=== PATIENT | female | born 1985 | race Caucasian/White ===

== ENCOUNTER 2018-08-13 14:07 | Inpatient (IN) | payer OTHER ==
[~2018-08-13] VITALS: Ht 160 cm; Wt 62.6 kg
[2018-08-13] MEDS ORDERED: LORAZEPAM INJ 2 MG/ML VIAL IVP ONE (14:30)
[2018-08-13] MEDS ORDERED: CHLO473M5 MM (14:30)
[2018-08-13] MEDS ORDERED: LEVO50TA8 GT (14:30)
[2018-08-13] MEDS ORDERED: ZOLP10TA2 GT (14:30)
[2018-08-13] MEDS ORDERED: HYDR-3974 GT (14:30)
[2018-08-13] MEDS ORDERED: IV NS 0.9% 1,000 ML BAG IV ONE ×2 (14:30→17:00)
[2018-08-13] MEDS ORDERED: SULF1TAB48 GT (14:30)
[2018-08-13] MEDS ORDERED: AMIN30LI2 GT (14:30)
[2018-08-13] MEDS ORDERED: LORA1TAB GT (14:30)
[2018-08-13] MEDS ORDERED: LEVE100S GT (14:30)
[2018-08-13] MEDS ORDERED: LEVETIRACETAM (500MG) 500 MG in IV NS 0.9% 100 ML IV ONE (14:30)
[2018-08-13] MEDS ORDERED: THIA100T74 GT (14:37)
[2018-08-13] MEDS ORDERED: ACET650S26 GT (14:37)
[2018-08-13] MEDS ORDERED: GABA-534 GT (14:37)
[2018-08-13] MEDS ORDERED: LORAZEPAM INJ 2 MG/ML VIAL ONE (14:39)
[2018-08-13] MEDS ORDERED: DIPH25CA6 GT (14:49)
[2018-08-13] MEDS ORDERED: IBUP100O19 GT (14:49)
[2018-08-13] MEDS ORDERED: ENOX40DI SQ (14:49)
[2018-08-13] MEDS ORDERED: IPRA3AMP23 IH ×2 (14:49)
[2018-08-13] MEDS ORDERED: BACL10TA GT (14:49)
[2018-08-13] MEDS ORDERED: OMEG1CAP GT (14:49)
[2018-08-13] MEDS ORDERED: DIVA500T2 GT (14:49)
[2018-08-13] MEDS ORDERED: LACT-209 GT (14:49)
[2018-08-13] MEDS ORDERED: FOLI1TAB16 GT (14:49)
[2018-08-13 14:56] LABS: BASOPHILS # (AUTO) 0.1 /CMM (0.0-0.2); BASOPHILS % (AUTO) 0.7 % (0.0-2.0); HEMATOCRIT 40 % (33-45); LYMPHOCYTES # (AUTO) 1.7 /CMM (0.8-4.8); LYMPHOCYTES % (AUTO) 20.6 % (20.0-44.0); MEAN CORPUSCULAR HGB CONC 35 g/dl (31.0-36.0); MEAN CORPUSCULAR VOLUME 96 fL (82-100); MONOCYTES # (AUTO) 0.9 /CMM (0.1-1.30); MONOCYTES % (AUTO) 10.3 % (2.0-12.0); NEUTROPHILS # (AUTO) 5.5 /CMM (1.8-8.9); NEUTROPHILS % (AUTO) 66.4 % (43.0-81.0); PLATELET COUNT (AUTO) 353 /CMM (150-450); RED BLOOD CELL COUNT(AUTO) 4.18 MIL/uL (4.0-5.2); WHITE BLOOD COUNT (AUTO) 8.3 K/uL (4.3-11.0)
[2018-08-13 15:08] LABS: CALCIUM, SERUM 9.5 mg/dL (8.5-10.1); CREATININE 0.4 mg/dL (0.6-1.3); POTASSIUM 3.3 mmol/L (3.5-5.1)
[2018-08-13 15:14] LABS: ALBUMIN 3.4 g/dL (3.4-5.0); BILIRUBIN,DIRECT 0.1 mg/dL (0.0-0.2); BILIRUBIN,TOTAL 0.2 mg/dL (0.2-1.0); TOTAL PROTEIN, SERUM 7.4 g/dL (6.4-8.2)
--- NOTE | 2018-08-13 15:20 | NUR ---
PT BROUGHT IN FROM [facility] PT HAS TRACH AND G-TUBE NON VERBAL PIV ESTABLISHED ALL MEDICATIONS AND FLUIDS GIVEN WILL CONTINUE TO MONITOR. BLOOD CULTURES TAKEN ALONG WITH LABS
[2018-08-13 16:34] LABS: APPEARANCE,URINE Slightly Cloudy (CLEAR); BILIRUBIN,URINE Negative (NEGATIVE); BLOOD, URINE Trace-intact Ery/uL (NEGATIVE); COLOR,URINE Yellow (YELLOW); KETONES,URINE Negative (NEGATIVE); LEUKOCYTE ESTERASE ,URINE Negative (NEGATIVE); NITRITE, URINE Negative (NEGATIVE); PROTEIN,URINE Negative (NEGATIVE); UGLUCOSE Negative (NEGATIVE)
[2018-08-13 16:47] LABS: BACTERIA,URINE Few /HPF (None Seen); RBC,URINE 0-2 /HPF (0-2); WBC,URINE 0-2 /HPF (0-3)
[2018-08-13 16:49] LABS: URINE AMORPHOUS URATE Few /HPF (None Seen)
[2018-08-13] MEDS ORDERED: ACETAMINOPHEN 650 MG/20.3 ML UDC ONE (16:54)
[2018-08-13] MEDS ORDERED: PIPERACILLIN /TAZOBACTAM 3.375 G in IV D5W 50 ML IV ONE (17:00)
[2018-08-13] MEDS ORDERED: ACETAMINOPHEN 160 MG/5 ML PO ONE (17:00)
[2018-08-13] MEDS ORDERED: ALBUTEROL FS 2.5 MG/3 ML VIAL.NEB CONTNEB ONE (17:30)
[2018-08-13] MEDS ORDERED: ALBUTEROL FS 2.5 MG/3 ML VIAL.NEB ONE (17:31)
--- NOTE | 2018-08-13 18:50 | NUR ---
RN REPORT GIVEN TO MAXIMINO PT ADMITTED TO [facility]-2 ADMITTING MD Michelle HENDERSON.
--- NOTE | 2018-08-13 18:50 | NUR ---
RECEIVED REPORT FROM JUAN SYED . PATIENT IS BEING ADMITTED FROM ER TO TELE ROOM 321-2.
--- NOTE | 2018-08-13 19:00 | NUR ---
SUPERINTENDENT INSTITUTION NOTE PATIENT ARRIVED TO UNIT ON A GURNEY ACCOMPANIED BY RN YAHAIRA AND MARITO. PATIENT IS WITH TRACH. OBTUNDED. APPEARS STABLE. VITAL SIGNS 141/84, HR 120, RR 20, TEMP 98.8. SPO2 97%. NO APPARENT DISTRESS OR DISCOMFORT AT THIS TIME. RESPIRATIONS EVEN AND UNLABORED. NO FACIAL GRIMACING OBSERVED. PATIENT MADE COMFORTABLE IN BED. NOTED G-TUBE IN PLACE. SAFETY MEASURES IN PLACE, BED IN LOW LOCKED POSITION, SIDE RAILS UP X3 PADS IMPLEMENTED, CALL LIGHT WITHIN EASY REACH, BED ALARM ON. WILL ENDORSE TO PM NURSE FOR ADMISSION AND DONTE.
[2018-08-13 20:00] VITALS: BP 141/84
[2018-08-13] MEDS ORDERED: LORAZEPAM 1 MG TABLET GT PRN (20:30)
[2018-08-13] MEDS ORDERED: ACETAMINOPHEN 650 MG/20.3 ML UDC GT PRN (20:30)
[2018-08-13] MEDS ORDERED: IBUPROFEN SUSP 100 MG/5 ML UDC GT PRN (20:30)
[2018-08-13] MEDS ORDERED: HYDROCODONE/APAP 5/325MG 1 EACH TABLET PO PRN (20:30)
[2018-08-13] MEDS ORDERED: ONDANSETRON HCL/PF 4 MG/2 ML VIAL IVP PRN (20:30)
[2018-08-13] MEDS ORDERED: ACETAMINOPHEN 325 MG TABLET PO PRN (20:30)
[2018-08-13] MEDS ORDERED: diphenhydrAMINE HCL 25 MG CAPSULE PO PRN (20:30)
[2018-08-13] MEDS ORDERED: Z GUARD REMEDY 2 OZ OINT TP PRN (20:30)
[2018-08-13] MEDS ORDERED: MAG HYDROX/AL HYDROX/SIMETH 30 ML UDC PO PRN (20:30)
[2018-08-13] MEDS ORDERED: MAGNESIUM HYDROXIDE 30 ML UDC PO PRN (20:30)
[2018-08-13] MEDS ORDERED: HYDROCODONE/APAP 5/325MG 1 EACH TABLET GT PRN (20:30)
[2018-08-13] MEDS ORDERED: VALPROATE IV ONE (21:00)
[2018-08-13] MEDS ORDERED: D5W IV ONE (21:00)
[2018-08-13] MEDS ORDERED: IPRATROPIUM NEB FS 0.5 MG/2.5 ML AMPUL.NEB NEB PRN (21:00)
--- NOTE | 2018-08-13 21:00 | NUR ---
SEAT NAILER RECEIVE PT IN BED NON VERBAL OBTUNDED OPENS EYES ON TRACH TUBE SHILEY 6 CUFFED OXYGEN AT 28% FI02 VIA CONTINUOS COOL AEROSOL VIA TRACH COLLAR 02 SAT AT 99%, RESPIRATIONS EVEN AND UNLABORED. HEAD TO TOE ASSESSMENT IS DONE.GT TUBE PLACE INTACT WITH NO S/S OF INFECTION. ADMIT TO TELEMETRY WITH RHYTHM OF SR 82 IN THE TELE MONITOR. PT QUADRIPLEGIC . KEPT CLEAN AND DRY AND COMFORT. NURSING CARE RENDERED. AFEBRILE. WILL CONTINUE TO MONITOR. MOTHER CAME AND AT THE BEDSIDE.
[2018-08-13] MEDS: JEVITY 1.2 CAL 1,000 ML BOTTLE GT SCH (21:29)
[2018-08-13] MEDS: GABAPENTIN 300 MG CAPSULE GT SCH (21:52)
[2018-08-13] MEDS: PROSOURCE / PROSTAT (PYXIS) 30 ML UDC GT SCH (21:52)
[2018-08-13] MEDS: SULFAMETH/TRIMETH 800/160 MG 1 UDTAB TABLET PO SCH (21:52)
[2018-08-13] MEDS: LEVETIRACETAM SOL (5 ML) 100 MG/ML UDC GT SCH (21:52)
[2018-08-13] MEDS: ATORVASTATIN 10 MG TABLET PO SCH (21:53)
[2018-08-13] MEDS: DIVALPROEX SODIUM 250 MG TABLET.DR PO SCH (21:53)
[2018-08-13] MEDS: IPRATROPIUM NEB FS 0.5 MG/2.5 ML AMPUL.NEB NEB SCH (22:16)
[2018-08-14] VITALS (7 sets, daily range): BP systolic 93–136; BP diastolic 52–83
[2018-08-14] MEDS: IPRATROPIUM NEB FS 0.5 MG/2.5 ML AMPUL.NEB NEB SCH ×4 (00:59→20:23)
--- NOTE | 2018-08-14 04:53 | NUR ---
NICOLAS MOREIRA SPOKE TO HIM CHANGE ORDER FROM NPO TO NPO EXCEPT MEDS VERIFIED ORDERS NOTED AND CARRIED OUT Addendum: 08/14/18 at 0623 by SHAHZAD PÉREZ RN CLARIFICATION OF ORDERS
[2018-08-14] MEDS: LEVETIRACETAM SOL (5 ML) 100 MG/ML UDC GT SCH ×3 (05:20→21:03)
[2018-08-14] MEDS: GABAPENTIN 300 MG CAPSULE GT SCH ×3 (05:21→21:03)
[2018-08-14] MEDS ORDERED: DIVALPROEX SODIUM 250 MG TABLET.DR PO ONE (05:23)
[2018-08-14] MEDS: DIVALPROEX SODIUM 250 MG TABLET.DR PO SCH (05:32)
--- NOTE | 2018-08-14 06:19 | NUR ---
RN CLOSING NOTE PT NON VERBAL OPENS EYES, ON CONTINUOS COOL AEROSOL VIA TRACH COLLAR 02 SAT AT 100%. RESPIRATIONS EVEN AND UNLABORED. NURSING CARE RENDERED, KEPT CLEAN AND DRY AND COMFORT, NEEDS ATTENDED AND ANTICIPATED. REPOSITIONED EVERY 2 HOURS. OFFLOAD HEELS AND ELBOWS AT ALL TIMES. NO SEIZURE EPISODE THROUGHOUT THE SHIFT. SAFETY MEASURES IN PLACE, CALL LIGHT WITHIN REACH. WILL ENDORSE TO THE NEXT SHIFT. Addendum: 08/14/18 at 0723 by SHAHZAD PÉREZ RN ALL PO MEDICATIONS ADMINISTERED TO GT
--- NOTE | 2018-08-14 07:48 | NUR ---
CANVAS WORKER OPENING NOTE' RECEIVED PATIENT IN BED, SLEEPING, AROUSED TO PHYSICAL STIMULI, RESPONDS WITH EYE OPENING. OBTUNDED. ON CONTINUOS COOL AEROSOL VIA TRACH COLLAR O2 SAT AT 100%. RESPIRATIONS EVEN AND UNLABORED. IN NO APPARENT DISTRESS OR DISCOMFORT AT THIS TIME. PATIENT ON TELE MONITORING WITH SR AND HR IN 80S. PATIENT WITH G-TUBE IN PLACE, FEEDING ON HOLD AT THIS TIME. LEFT AC 20G IVC SL, PATENT AND INTACT. PATIENT KEPT CLEAN AND COMFORTABLE. ALL NEEDS ATTENDED, SAFETY MEASURES IN PLACE, SEIZURE PRECAUTIONS OBSERVED, BED IN LOW LOCKED POSITION, SIDE RAILS UP X2, CALL LIGHT WITHIN EASY REACH. WILL CONTINUE TO MONITOR.
[2018-08-14] MEDS ORDERED: LORAZEPAM INJ 2 MG/ML VIAL IV PRN (08:00)
[2018-08-14] MEDS: PANTOPRAZOLE 40 MG VIAL IV SCH (08:20)
[2018-08-14] MEDS: LEVOTHYROXINE SODIUM 50 MCG TABLET GT SCH (08:21)
[2018-08-14] MEDS: THIAMINE HCL 100 MG TABLET GT SCH (08:21)
[2018-08-14] MEDS: BACLOFEN (10 MG) 10 MG TABLET GT SCH ×3 (08:21→16:16)
[2018-08-14] MEDS: FOLIC ACID 1 MG TABLET GT SCH (08:21)
[2018-08-14] MEDS: SULFAMETH/TRIMETH 800/160 MG 1 UDTAB TABLET PO SCH ×2 (08:21→21:03)
[2018-08-14] MEDS: ZOLPIDEM TARTRATE 10 MG TABLET GT SCH (08:21)
[2018-08-14] MEDS: ASPIRIN 81 MG TAB.CHEW PO SCH (08:21)
[2018-08-14] MEDS: ENOXAPARIN SODIUM 40 MG/0.4 ML DISP.SYRIN SQ SCH (08:22)
[2018-08-14] MEDS: PROSOURCE / PROSTAT (PYXIS) 30 ML UDC GT SCH ×2 (08:22→16:16)
[2018-08-14 08:52] LABS: BASOPHILS # (AUTO) 0.1 /CMM (0.0-0.2); BASOPHILS % (AUTO) 1.2 % (0.0-2.0); EOSINOPHILS % (AUTO) 4.5 % (0.0-6.0); HEMATOCRIT 38 % (33-45); HEMOGLOBIN 12.7 g/dL (11.5-14.8); LYMPHOCYTES # (AUTO) 2.1 /CMM (0.8-4.8); LYMPHOCYTES % (AUTO) 35.3 % (20.0-44.0); MEAN CORPUSCULAR HGB CONC 34 g/dl (31.0-36.0); MEAN CORPUSCULAR VOLUME 99 fL (82-100); MONOCYTES # (AUTO) 0.6 /CMM (0.1-1.30); MONOCYTES % (AUTO) 10.3 % (2.0-12.0); NEUTROPHILS # (AUTO) 2.9 /CMM (1.8-8.9); NEUTROPHILS % (AUTO) 48.7 % (43.0-81.0); PLATELET COUNT (AUTO) 296 /CMM (150-450); RED BLOOD CELL COUNT(AUTO) 3.78 MIL/uL (4.0-5.2)
[2018-08-14] MEDS ORDERED: Medication Not On Formulary EA (Omega-3 Fatty Acids/Fish Oil (Fish Oil 1,000 Mg Capsule) GT SCH (09:00)
[2018-08-14 09:03] LABS: CALCIUM, SERUM 8.6 mg/dL (8.5-10.1); CREATININE 0.5 mg/dL (0.6-1.3); MAGNESIUM 1.9 mg/dL (1.8-2.4); PHOSPHORUS 4.3 mg/dL (2.5-4.9); POTASSIUM 3.4 mmol/L (3.5-5.1)
[2018-08-14 09:29] LABS: THYROID STIMULATING HORMONE 1.492 uIU/mL (0.358-3.74)
[2018-08-14] MEDS ORDERED: VALPROIC ACID 250 MG/5 ML UDC GT SCH (13:00)
--- NOTE | 2018-08-14 18:25 | NUR ---
RECEIVED REPORT FROM LAB, PATIENT'S BLOOD CX RESULTED IN GRAM POSITIVE COCCI. REPORTED TO AMELIA HENDERSON. NO NEW ORDER AT THIS TIME.
--- NOTE | 2018-08-14 18:30 | NUR ---
MS RN CLOSING NOTE PATIENT IN BED, SLEEPING, AROUSED TO PHYSICAL STIMULI, RESPONDS WITH EYE OPENING. OBTUNDED. ON CONTINUOS COOL AEROSOL VIA TRACH COLLAR O2 SAT AT 100%. RESPIRATIONS EVEN AND UNLABORED. IN NO APPARENT DISTRESS OR DISCOMFORT AT THIS TIME. PATIENT WITH G-TUBE IN PLACE, FEEDING RUNNING AT 65ML/HR. LEFT AC 20G IVC SL, PATENT AND INTACT. PATIENT KEPT CLEAN AND COMFORTABLE. TURNED AND REPOSITIONED PER PROTOCOL, ALL NEEDS ATTENDED, SAFETY MEASURES IN PLACE, SEIZURE PRECAUTIONS OBSERVED, BED IN LOW LOCKED POSITION, SIDE RAILS UP X2, CALL LIGHT WITHIN EASY REACH. WILL ENDORSE TO PM NURSE FOR DONTE.
--- NOTE | 2018-08-14 20:04 | NUR ---
RN MS OPENING NOTES RECEIVED PATIENT IN BED, AWAKE, AROUSED TO TACTILE STIMULI. OBTUNDED. ON CONTINUOS COOL AEROSOL VIA TRACH COLLAR O2 SAT AT 100%. BREATHING EVEN AND UNLABORED. IN NO APPARENT DISCOMFORT AT THE TIME. G TUBE IN PLACE AND RUNNING @65ML./HR. IV ACCESS ON THE LEFT AC 20GSL. BED IN LOWEST LOCKED POSITION, MONITOR FREQUENTLY
[2018-08-14] MEDS: ATORVASTATIN 10 MG TABLET PO SCH (21:03)
[2018-08-15] MEDS: IPRATROPIUM NEB FS 0.5 MG/2.5 ML AMPUL.NEB NEB SCH ×4 (01:02→19:39)
[2018-08-15] MEDS: JEVITY 1.2 CAL 1,000 ML BOTTLE GT SCH ×2 (03:16→19:48)
[2018-08-15] MEDS: GABAPENTIN 300 MG CAPSULE GT SCH ×3 (04:20→21:03)
[2018-08-15] MEDS: LEVETIRACETAM SOL (5 ML) 100 MG/ML UDC GT SCH ×3 (04:20→21:03)
--- NOTE | 2018-08-15 06:25 | NUR ---
RN MS CLOSING NOTES PATIENT REMAINS IN BED, AWAKE, AROUSED TO TACTILE STIMULI. OBTUNDED. ON CONTINUOS COOL AEROSOL VIA TRACH COLLAR O2 SAT AT 100%. BREATHING EVEN AND UNLABORED. IN NO APPARENT DISCOMFORT AT THE TIME. G TUBE IN PLACE AND RUNNING @65ML./HR 2 ML OF RESIDUAL. IV ACCESS ON THE LEFT AC 20GSL. BED IN LOWEST LOCKED POSITION, WILL ENDORSE TO DAY NURSE FOR DONTE.
[2018-08-15 07:47] LABS: BASOPHILS % (AUTO) 0.8 % (0.0-2.0); EOSINOPHILS % (AUTO) 3.2 % (0.0-6.0); HEMATOCRIT 37 % (33-45); HEMOGLOBIN 12.8 g/dL (11.5-14.8); LYMPHOCYTES # (AUTO) 1.5 /CMM (0.8-4.8); LYMPHOCYTES % (AUTO) 24.3 % (20.0-44.0); MEAN CORPUSCULAR HGB CONC 35 g/dl (31.0-36.0); MEAN CORPUSCULAR VOLUME 97 fL (82-100); MONOCYTES # (AUTO) 0.5 /CMM (0.1-1.30); MONOCYTES % (AUTO) 8.3 % (2.0-12.0); NEUTROPHILS # (AUTO) 3.9 /CMM (1.8-8.9); NEUTROPHILS % (AUTO) 63.4 % (43.0-81.0); PLATELET COUNT (AUTO) 287 /CMM (150-450); RED BLOOD CELL COUNT(AUTO) 3.82 MIL/uL (4.0-5.2); WHITE BLOOD COUNT (AUTO) 6.1 K/uL (4.3-11.0)
--- NOTE | 2018-08-15 07:49 | NUR ---
MS RN OPENING NOTE RECEIVED PATIENT IN BED, SLEEPING, AROUSED TO PHYSICAL STIMULI, RESPONDS WITH EYE OPENING. OBTUNDED. ON CONTINUOS COOL AEROSOL VIA TRACH COLLAR O2 SAT AT 100%. RESPIRATIONS EVEN AND UNLABORED. IN NO APPARENT DISTRESS OR DISCOMFORT AT THIS TIME. PATIENT WITH G-TUBE IN PLACE, FEEDING RUNNING AT 65ML/HR. LEFT AC 20G IVC SL, PATENT AND INTACT. PATIENT KEPT CLEAN AND COMFORTABLE. ALL NEEDS ATTENDED, SAFETY MEASURES IN PLACE, SEIZURE PRECAUTIONS OBSERVED, BED IN LOW LOCKED POSITION, SIDE RAILS UP X2, CALL LIGHT WITHIN EASY REACH. WILL CONTINUE TO MONITOR.
[2018-08-15 08:00] VITALS: BP 114/84
[2018-08-15 08:23] LABS: CALCIUM, SERUM 9.3 mg/dL (8.5-10.1); CREATININE 0.4 mg/dL (0.6-1.3); MAGNESIUM 2.2 mg/dL (1.8-2.4); PHOSPHORUS 3.9 mg/dL (2.5-4.9); POTASSIUM 3.9 mmol/L (3.5-5.1)
[2018-08-15 08:40] VITALS: BP 114/84
[2018-08-15] MEDS: SULFAMETH/TRIMETH 800/160 MG 1 UDTAB TABLET PO SCH (08:54)
[2018-08-15] MEDS: BACLOFEN (10 MG) 10 MG TABLET GT SCH ×3 (08:54→16:36)
[2018-08-15] MEDS: ASPIRIN 81 MG TAB.CHEW PO SCH (08:54)
[2018-08-15] MEDS: LEVOTHYROXINE SODIUM 50 MCG TABLET GT SCH (08:54)
[2018-08-15] MEDS: FOLIC ACID 1 MG TABLET GT SCH (08:55)
[2018-08-15] MEDS: PROSOURCE / PROSTAT (PYXIS) 30 ML UDC GT SCH ×2 (08:55→16:36)
[2018-08-15] MEDS: PANTOPRAZOLE 40 MG VIAL IV SCH (08:57)
[2018-08-15] MEDS: ZOLPIDEM TARTRATE 10 MG TABLET GT SCH (08:58)
[2018-08-15] MEDS: THIAMINE HCL 100 MG TABLET GT SCH (08:58)
[2018-08-15] MEDS: ENOXAPARIN SODIUM 40 MG/0.4 ML DISP.SYRIN SQ SCH (09:00)
--- NOTE | 2018-08-15 09:00 | NUR ---
URINE SAMPLE COLLECTED VIA IN AND OUT CATHETERIZATION. AVAILABLE FOR LAB TO REHABILITATION THERAPY TECHNICIAN AT THIS TIME.
[2018-08-15] MEDS: VALPROIC ACID 250 MG/5 ML UDC GT SCH ×3 (09:30→16:36)
--- NOTE | 2018-08-15 10:58 | NUR ---
patient's mother at bedside, refused the ordered Depakote stating she wants to speak to the doctor first before giving the medication. Sangeeta Rodriguez NP made bruno. per Sangeeta, family needs to discuss that with the neurologist. waiting neuro follow up at this time. hold the dose at this time per family request.
--- NOTE | 2018-08-15 11:38 | NUR ---
CARMEN HENDERSON SPECIAL EDUCATION INSTRUCTOR DISCUSSED THE ISSUE WITH DEPAKOTE WITH THE FAMILY. AT THIS TIME PATIENT 'S MOTHER IS IN AGREEMENT WITH ADMINISTERING DEPAKOTE. PER CARMEN BOOKER TO GIVE MORNING DOSE NOW. NOTED AND CARRIED OUT.
--- NOTE | 2018-08-15 15:22 | NUR ---
EMMANUEL WARNER PER AMELIA HENDERSON'S ORDER. NOTED AND CARRIED OUT.
[2018-08-15] MEDS ORDERED: FEE PK DOSING 1 MIN EA MC ONE (15:29)
[2018-08-15 16:04] VITALS: BP 121/68
[2018-08-15] MEDS: VANCOMYCIN 1 GM in IV D5W 250 ML IV SCH (17:19)
--- NOTE | 2018-08-15 19:00 | NUR ---
MS RN CLOSING NOTE PATIENT IN BED, SLEEPING, AROUSED TO PHYSICAL STIMULI, RESPONDS WITH EYE OPENING. OBTUNDED. ON CONTINUOS COOL AEROSOL VIA TRACH COLLAR O2 SAT AT 100%. RESPIRATIONS EVEN AND UNLABORED. IN NO APPARENT DISTRESS OR DISCOMFORT AT THIS TIME. PATIENT WITH G-TUBE IN PLACE, FEEDING RUNNING AT 65ML/HR, PATENT AND INTACT, 2-3 ML RESIDUAL. LEFT AC 20G IVC SL, PATENT AND INTACT. PATIENT KEPT CLEAN AND COMFORTABLE. TURNED AND REPOSITIONED PER PROTOCOL, ALL NEEDS ATTENDED, SAFETY MEASURES IN PLACE, SEIZURE PRECAUTIONS OBSERVED, BED IN LOW LOCKED POSITION, SIDE RAILS UP X2, CALL LIGHT WITHIN EASY REACH. WILL ENDORSE TO PM NURSE FOR DONTE.
--- NOTE | 2018-08-15 19:46 | NUR ---
RN MS OPENING NOTES RECEIVED PATIENT IN BED, SLEEPING, AROUSED TO TACTILE STIMULI. OBTUNDED. MOTHER AT BEDSIDE. ON CONTINUOS COOL AEROSOL VIA TRACH COLLAR O2 SAT AT 100%. BREATHING EVEN AND UNLABORED. IN NO APPARENT DISCOMFORT AT THE TIME. G TUBE IN PLACE AND RUNNING @65ML./HR. IV ACCESS ON THE LEFT AC 20G TKO. BED IN LOWEST LOCKED POSITION, MONITOR FREQUENTLY
[2018-08-15 20:20] VITALS: BP 120/71
[2018-08-15] MEDS: ATORVASTATIN 10 MG TABLET PO SCH (21:03)
[2018-08-16] MEDS: VANCOMYCIN 1 GM in IV D5W 250 ML IV SCH ×2 (00:48→10:38)
[2018-08-16] MEDS: VALPROIC ACID 250 MG/5 ML UDC GT SCH ×3 (00:52→16:31)
[2018-08-16] MEDS: IPRATROPIUM NEB FS 0.5 MG/2.5 ML AMPUL.NEB NEB SCH ×4 (01:17→20:36)
[2018-08-16] MEDS: GABAPENTIN 300 MG CAPSULE GT SCH ×2 (04:56→13:00)
[2018-08-16] MEDS: LEVETIRACETAM SOL (5 ML) 100 MG/ML UDC GT SCH ×3 (04:56→21:02)
--- NOTE | 2018-08-16 06:30 | NUR ---
RN MS CLOSING NOTES PATIENT REMAINS IN BED, AWAKE, AROUSED TO TACTILE STIMULI. OBTUNDED. ON CONTINUOS COOL AEROSOL VIA TRACH COLLAR O2 SAT AT 100%. BREATHING EVEN AND UNLABORED. IN NO APPARENT DISCOMFORT AT THE TIME. G TUBE IN PLACE AND RUNNING @65ML./HR 0 ML OF RESIDUAL. IV ACCESS ON THE LEFT AC 20GSL. ONE LARGE SOFT BM DURING SHIFT. BED IN LOWEST LOCKED POSITION, WILL ENDORSE TO DAY NURSE FOR DONTE.
[2018-08-16 07:05] LABS: BASOPHILS # (AUTO) 0.1 /CMM (0.0-0.2); BASOPHILS % (AUTO) 0.7 % (0.0-2.0); EOSINOPHILS % (AUTO) 3.9 % (0.0-6.0); HEMATOCRIT 38 % (33-45); HEMOGLOBIN 12.9 g/dL (11.5-14.8); LYMPHOCYTES # (AUTO) 1.6 /CMM (0.8-4.8); LYMPHOCYTES % (AUTO) 22.5 % (20.0-44.0); MEAN CORPUSCULAR HGB CONC 34 g/dl (31.0-36.0); MEAN CORPUSCULAR VOLUME 98 fL (82-100); MONOCYTES # (AUTO) 0.5 /CMM (0.1-1.30); MONOCYTES % (AUTO) 6.8 % (2.0-12.0); NEUTROPHILS # (AUTO) 4.8 /CMM (1.8-8.9); NEUTROPHILS % (AUTO) 66.1 % (43.0-81.0); PLATELET COUNT (AUTO) 317 /CMM (150-450); RED BLOOD CELL COUNT(AUTO) 3.92 MIL/uL (4.0-5.2); WHITE BLOOD COUNT (AUTO) 7.3 K/uL (4.3-11.0)
--- NOTE | 2018-08-16 07:15 | NUR ---
RN OPENING NOTES RECEIVED PATIENT IN BED, SLEEPING, AROUSED TO TACTILE STIMULI. OBTUNDED. NOT IN ANY FORM OF DISTRESS. NO S/S OF PAIN OR DISCOMFORT AT THIS TIME. ON CONTINUOS COOL AEROSOL VIA TRACH COLLAR O2 SAT AT 100%. BREATHING EVEN AND UNLABORED. G TUBE IN PLACE AND RUNNING @65ML./HR. IV ACCESS ON THE LEFT AC 20G INTACT AND PATENT. KEPT PATIENT SAFE AND COMFORTABLE. SEIZURE PRECAUTIONS IN PLACE. BED IN LOWEST LOCKED POSITION, SIDERAILS UP AND PADDED. CALL LIGHT IN REACH. WILL CONT TO MONIOTR ACCORDINGLY.
[2018-08-16 07:27] LABS: CREATININE 0.4 mg/dL (0.6-1.3); POTASSIUM 3.6 mmol/L (3.5-5.1)
[2018-08-16 07:30] LABS: PHOSPHORUS 3.7 mg/dL (2.5-4.9)
[2018-08-16 08:00] VITALS: BP 113/85
[2018-08-16] MEDS: THIAMINE HCL 100 MG TABLET GT SCH (10:34)
[2018-08-16] MEDS: BACLOFEN (10 MG) 10 MG TABLET GT SCH ×3 (10:34→16:27)
[2018-08-16] MEDS: LEVOTHYROXINE SODIUM 50 MCG TABLET GT SCH (10:35)
[2018-08-16] MEDS: FOLIC ACID 1 MG TABLET GT SCH (10:35)
[2018-08-16] MEDS: PANTOPRAZOLE 40 MG VIAL IV SCH (10:35)
--- NOTE | 2018-08-16 10:36 | NUR ---
WOUND CARE CONSULT: PT PRESENTS WITH IMMOBILITY AND GROIN/PERINEAL RASH, PRESENT ON ADMISSION. RECOMMENDATIONS MADE FOR SKIN CARE AND SKIN PROTECTION. DISCUSSED WITH NURSING STAFF. LOW AIRLOSS BED TO BE PLACED. CURRENT WENDY SCORE IS 10. MD IN AGREEMENT WITH PLAN OF CARE. WILL SEE PRN. Addendum: 08/16/18 at 1038 by EVANGELINA HAMPTON WNDNU Amended: Links added.
[2018-08-16] MEDS: ASPIRIN 81 MG TAB.CHEW PO SCH (10:39)
[2018-08-16] MEDS: CLOTRIMAZOLE 1% 15 GM TUBE TP SCH ×2 (10:40→18:27)
[2018-08-16] MEDS: ENOXAPARIN SODIUM 40 MG/0.4 ML DISP.SYRIN SQ SCH (11:56)
[2018-08-16] MEDS: PROSOURCE / PROSTAT (PYXIS) 30 ML UDC GT SCH ×2 (11:56→16:28)
[2018-08-16 16:00] VITALS: BP 127/74
[2018-08-16] MEDS: JEVITY 1.2 CAL 1,000 ML BOTTLE GT SCH (17:45)
--- NOTE | 2018-08-16 19:20 | NUR ---
RN CLOSING NOTES PATIENT IN STABLE CONDITION. ALL NEEDS ATTENDED AND PROVIDED. ALL DUE MEDICATIONS GIVEN ORDERED. TURNED AND REPOSITIONED PATIENT EVERY 2HRS NEEDED. SUCTIONED PATIENT'S TRACH NEEDED. HOB ELEVATED. ASPIRATION PRECAUTION IN PLACE. KEPT PATIENT SAFE AND COMFORTABLE. BED IN LOW/LOCKED POSITION, SIDERAILS UP AND PADDED, CALL LIGHT IN REACH. ENDORSED TO NIGHT RN FOR DONTE.
--- NOTE | 2018-08-16 19:21 | NUR ---
RN NOTES ENDORSED TO NIGHT RN THAT PATIENT NEEDS TO BE TRANSFER TO AN ISOFLEX/AIRLOSS BED. NO BED AVAILABLE DURING DAY SHIFT.
--- NOTE | 2018-08-16 19:24 | NUR ---
RN MS OPENING NOTES RECEIVED PATIENT IN BED, SLEEPING, AROUSED TO TACTILE STIMULI. OBTUNDED. MOTHER AT BEDSIDE. ON CONTINUOS COOL AEROSOL VIA TRACH COLLAR O2 SAT AT 100%. BREATHING EVEN AND UNLABORED. IN NO APPARENT DISCOMFORT AT THE TIME. G TUBE IN PLACE AND RUNNING @65ML./HR. IV ACCESS ON THE LEFT AC 20G TKO. BED IN LOWEST LOCKED POSITION, WILL CONTINUE TO MONITOR FREQUENTLY
[2018-08-16 20:00] VITALS: BP 126/83
[2018-08-16] MEDS: ATORVASTATIN 10 MG TABLET PO SCH (21:03)
[2018-08-17] MEDS: IPRATROPIUM NEB FS 0.5 MG/2.5 ML AMPUL.NEB NEB SCH ×4 (01:47→19:18)
[2018-08-17] MEDS: VALPROIC ACID 250 MG/5 ML UDC GT SCH (02:02)
[2018-08-17] MEDS: LEVETIRACETAM SOL (5 ML) 100 MG/ML UDC GT SCH ×3 (04:05→21:27)
[2018-08-17 06:20] LABS: BASOPHILS % (AUTO) 0.3 % (0.0-2.0); EOSINOPHILS % (AUTO) 1.7 % (0.0-6.0); HEMATOCRIT 38 % (33-45); HEMOGLOBIN 13.3 g/dL (11.5-14.8); LYMPHOCYTES # (AUTO) 1.4 /CMM (0.8-4.8); LYMPHOCYTES % (AUTO) 13.5 % (20.0-44.0); MEAN CORPUSCULAR HGB CONC 35 g/dl (31.0-36.0); MEAN CORPUSCULAR VOLUME 97 fL (82-100); MONOCYTES # (AUTO) 0.6 /CMM (0.1-1.30); MONOCYTES % (AUTO) 5.3 % (2.0-12.0); NEUTROPHILS # (AUTO) 8.4 /CMM (1.8-8.9); NEUTROPHILS % (AUTO) 79.2 % (43.0-81.0); PLATELET COUNT (AUTO) 319 /CMM (150-450); RED BLOOD CELL COUNT(AUTO) 3.95 MIL/uL (4.0-5.2); WHITE BLOOD COUNT (AUTO) 10.6 K/uL (4.3-11.0)
[2018-08-17 07:03] LABS: CALCIUM, SERUM 9.1 mg/dL (8.5-10.1); CREATININE 0.4 mg/dL (0.6-1.3); MAGNESIUM 1.9 mg/dL (1.8-2.4); PHOSPHORUS 3.3 mg/dL (2.5-4.9)
--- NOTE | 2018-08-17 07:59 | NUR ---
MS/RN OPENING NOTE PATIENT IN BED IN STABLE CONDITION. NON VERBAL, OBTUNDED. TRACH DEPENDENT ON COOL AEROSOL TOLERATING WELL. NO SIGNS OF ACUTE DISTRESS. NO S/S OF PAIN OR DISCOMFORT NOTED AT THIS TIME. ON G TUBE FEEDING JEVITY AT 65MLS/HR. TOLERATING WELL. HOB ELEVATED AT ALL TIMES FOR ASPIRATION PRECAUTION. ALL NEEDS ATTENDED TO. CALL LIGHT WITHIN REACH. WILL CONTINUE TO MONITOR TO ENSURE SAFETY.
[2018-08-17 08:00] VITALS: BP 149/96
[2018-08-17] MEDS: CLOTRIMAZOLE 1% 15 GM TUBE TP SCH ×2 (09:04→17:02)
[2018-08-17] MEDS: THIAMINE HCL 100 MG TABLET GT SCH (09:04)
[2018-08-17] MEDS: PANTOPRAZOLE 40 MG VIAL IV SCH (09:04)
[2018-08-17] MEDS: LEVOTHYROXINE SODIUM 50 MCG TABLET GT SCH (09:04)
[2018-08-17] MEDS: BACLOFEN (10 MG) 10 MG TABLET GT SCH ×3 (09:05→17:02)
[2018-08-17] MEDS: PROSOURCE / PROSTAT (PYXIS) 30 ML UDC GT SCH ×2 (09:05→17:02)
[2018-08-17] MEDS: FOLIC ACID 1 MG TABLET GT SCH (09:05)
[2018-08-17] MEDS: ASPIRIN 81 MG TAB.CHEW PO SCH (09:05)
[2018-08-17] MEDS: ENOXAPARIN SODIUM 40 MG/0.4 ML DISP.SYRIN SQ SCH (09:06)
[2018-08-17 16:00] VITALS: BP 141/89
[2018-08-17] MEDS: JEVITY 1.2 CAL 1,000 ML BOTTLE GT SCH (17:02)
--- NOTE | 2018-08-17 17:44 | NUR ---
MS/RN SPOKE WITH ADARSH CISNEROS FOR NEURO DR JOHNSON AND RELAYED STAT DEPAKOTE LEVEL OF 74 ORDERED AT 3:15PM WITH NO NEW ORDERS.
--- NOTE | 2018-08-17 18:30 | NUR ---
MS/RN CLOSING NOTE PATIENT IN BED IN STABLE CONDITION. NON VERBAL, OBTUNDED, OPEN EYES. NO SIGNS OF ACUTE DISTRESS. NO COMPLAIN OF PAIN OR DISCOMFORT. ON TRACH DEPENDENT. TOLERATING WELL. ON GTUBE FEEDING JEVITY AT 65 MLS/HR. TOLERATING WELL. HOB ELEVATED FOR ASPIRATION PRECAUTION. ALL NEEDS ATTENDED TO. CALL LIGHT WITHIN REACH. WILL ENDORSE TO NEXT SHIFT FOR CONTINUITY OF CARE.
--- NOTE | 2018-08-17 19:57 | NUR ---
RN MS OPENING NOTES RECEIVED PATIENT IN BED, SLEEPING, AROUSED TO TACTILE STIMULI. OBTUNDED. FAMILY AT BEDSIDE. ON CONTINUOS COOL AEROSOL VIA TRACH COLLAR O2 SAT AT 100%. BREATHING EVEN AND UNLABORED. IN NO APPARENT DISCOMFORT AT THE TIME. G TUBE IN PLACE AND RUNNING @65ML./HR. IV ACCESS ON THE LEFT AC 20G TKO. BED IN LOWEST LOCKED POSITION, WILL CONTINUE TO MONITOR FREQUENTLY
[2018-08-17 20:00] VITALS: BP 127/80
[2018-08-17] MEDS: ATORVASTATIN 10 MG TABLET PO SCH (21:27)
[2018-08-17] MEDS: VALPROATE 1,000 MG in IV NS 0.9% 100 ML IV SCH (21:27)
[2018-08-18] MEDS: IPRATROPIUM NEB FS 0.5 MG/2.5 ML AMPUL.NEB NEB SCH ×4 (00:59→19:17)
[2018-08-18] MEDS: LEVETIRACETAM SOL (5 ML) 100 MG/ML UDC GT SCH ×3 (05:22→21:14)
[2018-08-18] MEDS: VALPROATE 1,000 MG in IV NS 0.9% 100 ML IV SCH (05:23)
--- NOTE | 2018-08-18 06:12 | NUR ---
RN MS CLOSING NOTES PATIENT REMAINS IN BED, AWAKE, AROUSED TO TACTILE STIMULI. OBTUNDED. ON CONTINUOS COOL AEROSOL VIA TRACH COLLAR O2 SAT AT 100%. BREATHING EVEN AND UNLABORED. IN NO APPARENT DISCOMFORT AT THE TIME. G TUBE IN PLACE AND RUNNING @65ML./HR 2 ML OF RESIDUAL. IV ACCESS ON THE LEFT AC 20GSL. NO BM DURING SHIFT. BED IN LOWEST LOCKED POSITION, WILL ENDORSE TO DAY NURSE FOR DONTE.
--- NOTE | 2018-08-18 07:25 | NUR ---
MS/RN NOTE THE PATIENT IS RECEIVED IN BED. PATIENT IS OBTUNDED, OPEN EYES TO TACTILE STIMULI AND SHE IS ON CONTINUOS COOL AEROSOL VIA TRACH COLLAR O2 SAT AT 100%. GT FEEDING JEVITY INFUSING AT 65ML/HR. ABDOMEN SOFT AND NON-DISTENDED. LAC G 20 PATENT AND SALINE LOCKED. BED LOW AND LOCKED. SIDE RAILS UP X3 AND PADDED. CALL LIGHT WITHIN REACH. WILL CONTINUE TO MONITOR.
[2018-08-18 07:40] LABS: BASOPHILS % (AUTO) 0.2 % (0.0-2.0); EOSINOPHILS % (AUTO) 1.4 % (0.0-6.0); HEMATOCRIT 41 % (33-45); HEMOGLOBIN 13.8 g/dL (11.5-14.8); LYMPHOCYTES # (AUTO) 1.3 /CMM (0.8-4.8); LYMPHOCYTES % (AUTO) 14.7 % (20.0-44.0); MEAN CORPUSCULAR HGB CONC 34 g/dl (31.0-36.0); MEAN CORPUSCULAR VOLUME 97 fL (82-100); MONOCYTES # (AUTO) 0.4 /CMM (0.1-1.30); NEUTROPHILS % (AUTO) 78.7 % (43.0-81.0); PLATELET COUNT (AUTO) 299 /CMM (150-450); RED BLOOD CELL COUNT(AUTO) 4.17 MIL/uL (4.0-5.2); WHITE BLOOD COUNT (AUTO) 8.9 K/uL (4.3-11.0)
[2018-08-18 08:00] VITALS: BP 130/84
[2018-08-18 08:03] LABS: CALCIUM, SERUM 9.7 mg/dL (8.5-10.1); CREATININE 0.4 mg/dL (0.6-1.3); MAGNESIUM 1.9 mg/dL (1.8-2.4); PHOSPHORUS 3.2 mg/dL (2.5-4.9); POTASSIUM 3.9 mmol/L (3.5-5.1)
[2018-08-18] MEDS: CLOTRIMAZOLE 1% 15 GM TUBE TP SCH ×2 (09:00→17:10)
--- NOTE | 2018-08-18 10:00 | NUR ---
MS/RN NOTE SULFUR BURNER ALEXA IS MADE AWARE THAT THE PATIENT`S LOWER LIP IS MODERATELY SWOLLEN. RECEIVED THE PATIENT IS MODERATELY SWOLLEN LOWER LIP. SULFUR BURNER ALEXA WITH NO NEW ORDER. WILL CONTINUE TO MONITOR.
[2018-08-18] MEDS: PANTOPRAZOLE 40 MG VIAL IV SCH (11:30)
[2018-08-18] MEDS: LEVOTHYROXINE SODIUM 50 MCG TABLET GT SCH (11:30)
[2018-08-18] MEDS: ENOXAPARIN SODIUM 40 MG/0.4 ML DISP.SYRIN SQ SCH (11:30)
[2018-08-18] MEDS: BACLOFEN (10 MG) 10 MG TABLET GT SCH ×3 (11:30→17:10)
[2018-08-18] MEDS: PROSOURCE / PROSTAT (PYXIS) 30 ML UDC GT SCH ×2 (11:30→17:05)
[2018-08-18] MEDS: FOLIC ACID 1 MG TABLET GT SCH (11:30)
[2018-08-18] MEDS: THIAMINE HCL 100 MG TABLET GT SCH (11:30)
[2018-08-18] MEDS: ASPIRIN 81 MG TAB.CHEW PO SCH (11:30)
--- NOTE | 2018-08-18 13:00 | NUR ---
MS/RN NOTE GAS APPLIANCE INSTALLER ADARSH ALMAGUER IS MADE AWARE OF PATIENT HAVING SHORT EPISODES OF NYSTAGMUS LIKE EYE MOVEMENTS AND THAT VALPROIC ACID LEVEL IS 144. NO NEW ORDER PER GAS APPLIANCE INSTALLER. WILL CONTINUE TO MONITOR THE PATIENT.
--- NOTE | 2018-08-18 13:26 | NUR ---
MS/RN NOTE 0900 DUE MEDICATIONS GIVEN AT 1130 DUE MEDITECH WAS DOWN AND PHARMACY PROVIDED THE LIST OF THE MEDICATION TO BE ADMINISTERED AT 1130. AMELIA LIU IS MADE AWARE.
--- NOTE | 2018-08-18 15:19 | NUR ---
MS/RN NOTE TYLENOL 650 MG GIVEN VIA GT FOR TEMP 99.2. WILL CONTINUE TO MONITOR.
--- NOTE | 2018-08-18 15:45 | NUR ---
MS/RN NOTE TEMP IS 98.4. THE PATIENT REMAINS IN NO APPARENT DISTRESS.
[2018-08-18 16:00] VITALS: BP 137/75
--- NOTE | 2018-08-18 17:08 | NUR ---
MS/RN BACLOFEN 5 MG DUE AT 1300 NOT ADMINISTERED DUE TO BACLOFEN 5 MG ADMINISTERED AT 1130 INSTEAD OF 0900. MIXER OPERATOR HOT METAL ALEXA IS MADE AWARE.
[2018-08-18 18:00] VITALS: BP 137/82
--- NOTE | 2018-08-18 18:52 | NUR ---
MS/RN NOTE THE PATIENT OBTUNDED, OPEN EYES TO TACTILE STIMULI AND SHE IS ON CONTINUOS COOL AEROSOL VIA TRACH COLLAR O2 SAT AT 100%. GT FEEDING JEVITY INFUSING AT 65ML/HR. ABDOMEN SOFT AND NON-DISTENDED. NO RESIDUAL NOTED. LAC G 20 PATENT AND SALINE LOCKED. GOOD AND GENTLE SKIN CARE RENDERED. KEPT CLEAN AND COMFORTABLE. TURNED AND REPOSITIONED Q2HR AND NEEDED. BED LOW AND LOCKED. SIDE RAILS UP X3 AND PADDED. CALL LIGHT WITHIN REACH. WILL ENDORSE TO FISHER EEL.
--- NOTE | 2018-08-18 19:30 | NUR ---
RECEIVED PATIENT IN BED WITH EYES OPEN; OBTUNDED. NO ACUTE DISTRESS NOTED. NO SIGNS OF PAIN NOTED. TRACH INTACT; T-PIECE IN PLACE. ON COOL AEROSOL. GT PATENT, INTACT; IN PLACE VIA AUSCULTATION. GTF ONGOING; NO RESIDUAL ASPIRATED. HOB RAISED. ASPIRATION PRECAUTION MAINTAINED. ON LOW BED WITH BILATERAL UPPER SIDE RAILS UP. CALL LADD WITHIN EASY REACH. WILL CONTINUE TO MONITOR.
[2018-08-18 20:00] VITALS: BP 134/81
[2018-08-18] MEDS: ATORVASTATIN 10 MG TABLET PO SCH (21:14)
[2018-08-19] MEDS: IPRATROPIUM NEB FS 0.5 MG/2.5 ML AMPUL.NEB NEB SCH ×4 (01:32→18:51)
[2018-08-19] MEDS: LEVETIRACETAM SOL (5 ML) 100 MG/ML UDC GT SCH ×3 (05:16→21:29)
--- NOTE | 2018-08-19 06:43 | NUR ---
PATIENT WITH EYES OPEN. RESPIRATIONS EVEN. NO SIGNS OF PAIN NOTED. DUE MEDS GIVEN WITH NO ASE NOTED. GTF ONGOING; STILL NO RESIDUAL ASPIRATED. HOB RAISED. KEPT CLEAN, DRY, AND COMFORTABLE. TURNED AND REPOSITIONED Q 2 HOURS. HEEL OFFLOADED. SAFETY PRECAUTIONS AND COMFORT MEASURES IN PLACE. WILL GIVE REPORT TO DAY SHIFT FOR CONTINUITY OF CARE.
[2018-08-19] MEDS: JEVITY 1.2 CAL 1,000 ML BOTTLE GT SCH (06:51)
[2018-08-19 07:47] LABS: CALCIUM, SERUM 9.6 mg/dL (8.5-10.1); CREATININE 0.5 mg/dL (0.6-1.3); POTASSIUM 3.9 mmol/L (3.5-5.1)
[2018-08-19 07:48] LABS: BASOPHILS % (AUTO) 0.2 % (0.0-2.0); EOSINOPHILS % (AUTO) 0.3 % (0.0-6.0); HEMATOCRIT 42 % (33-45); HEMOGLOBIN 14.3 g/dL (11.5-14.8); LYMPHOCYTES # (AUTO) 0.9 /CMM (0.8-4.8); LYMPHOCYTES % (AUTO) 7.4 % (20.0-44.0); MEAN CORPUSCULAR HGB CONC 34 g/dl (31.0-36.0); MEAN CORPUSCULAR VOLUME 96 fL (82-100); MONOCYTES # (AUTO) 0.7 /CMM (0.1-1.30); MONOCYTES % (AUTO) 5.2 % (2.0-12.0); NEUTROPHILS % (AUTO) 86.9 % (43.0-81.0); PLATELET COUNT (AUTO) 365 /CMM (150-450); RED BLOOD CELL COUNT(AUTO) 4.39 MIL/uL (4.0-5.2); WHITE BLOOD COUNT (AUTO) 12.7 K/uL (4.3-11.0)
[2018-08-19 08:00] VITALS: BP 130/86
--- NOTE | 2018-08-19 08:00 | NUR ---
MS RN AM NOTES RECEIVED PATIENT IN BED WITH EYES OPEN; OBTUNDED. NO ACUTE DISTRESS NOTED. NO SIGNS OF PAIN NOTED. TRACH INTACT; T-PIECE IN PLACE. ON COOL AEROSOL. GT PATENT, INTACT; GT FEEDING ON HOLD AND WILL RESUME AT 10AM FOR [address] VIA AUSCULTATION.NO RESIDUAL ASPIRATED. HOB RAISED. ASPIRATION PRECAUTION MAINTAINED. ON LOW BED WITH BILATERAL UPPER SIDE RAILS UP. NEURO DRY HOUSE WHEELER,SUSHIL SPOKE TO PT'S MOM,MIGNON AT BEDSIDE AND DISCUSSED PT'S MEDS OF DEPAKOTE,KEPPRA AND FAMILY WANTS TOPAMAX INSTEAD-MENTIONED IT TO AMELIA LING.ALSO GAVE PT'S NEURO,DR TANNER'S PHONE NUMBER TO AMELIA LING.CALL LADD WITHIN EASY REACH. WILL CONTINUE TO MONITOR.
[2018-08-19] MEDS: FOLIC ACID 1 MG TABLET GT SCH (09:14)
[2018-08-19] MEDS: THIAMINE HCL 100 MG TABLET GT SCH (09:14)
[2018-08-19] MEDS: LEVOTHYROXINE SODIUM 50 MCG TABLET GT SCH (09:14)
[2018-08-19] MEDS: ASPIRIN 81 MG TAB.CHEW PO SCH (09:14)
[2018-08-19] MEDS: PANTOPRAZOLE 40 MG VIAL IV SCH (09:14)
[2018-08-19] MEDS: BACLOFEN (10 MG) 10 MG TABLET GT SCH ×3 (09:14→17:14)
[2018-08-19] MEDS: ENOXAPARIN SODIUM 40 MG/0.4 ML DISP.SYRIN SQ SCH (09:15)
[2018-08-19] MEDS: PROSOURCE / PROSTAT (PYXIS) 30 ML UDC GT SCH ×2 (09:19→17:14)
[2018-08-19] MEDS: CLOTRIMAZOLE 1% 15 GM TUBE TP SCH ×2 (09:32→17:41)
[2018-08-19] MEDS: VALPROATE 750 MG in IV NS 0.9% 100 ML IV SCH ×2 (11:22→21:29)
[2018-08-19 16:00] VITALS: BP 123/90
--- NOTE | 2018-08-19 18:18 | NUR ---
PT RESTING IN BED WITH NO S/S OF SOB OR DISCOMFORT.SUCTIONED THICK YELLOWISH WHITE SECRETIONS.TURNED EVERY TWO HRS.WITH ONGOING GT FEEDING AT 65 ML/HR TOLERATING WELL.WITH 5 ML RESIDUALS NOTED THIS AFTERNOON.PT'S MOM AT BEDSIDE.CALL LIGHT WITHIN REACH.
[2018-08-19 20:00] VITALS: BP 136/86
--- NOTE | 2018-08-19 20:00 | NUR ---
RN INITIAL NOTES: RECEIVED REPORT FROM ROSALINE Daigle RN, PT IN BED, OBTUNDED, ON COOL AEROSOL FIO2 28%, TRACHE SHILEY NUMBER 6. PT CURRENTLY RECEIVING GTUBE FEEDING JEVITY 1.2 AT 65ML/HR, NOTED TO HAVE 30 ML RESIDUAL. IV ACCESS PATENT AND FLUSHING WELL, ON HL. ABDOMEN SOFT TO TOUCH WITH ACTIVE BOWEL SOUND HEARD UPON AUSCULTATION. BLE OFFLOADED, ORAL CARE PROVIDED. CONTRACTURES NOTED ON UPPER EXTREMITY. HOB KEPT ELEVATED 30 DEGREES. SAFETY PRECAUTIONS FOR FALL INITIATED, CALL LIGHT IN REACH, WILL CONTINUE MONITORING PT.
[2018-08-19] MEDS: ATORVASTATIN 10 MG TABLET PO SCH (21:29)
[2018-08-19 22:00] VITALS: BP 134/82
[2018-08-20] MEDS: IPRATROPIUM NEB FS 0.5 MG/2.5 ML AMPUL.NEB NEB SCH ×4 (01:13→19:27)
[2018-08-20] MEDS: JEVITY 1.2 CAL 1,000 ML BOTTLE GT SCH ×2 (02:40→19:22)
[2018-08-20 04:00] VITALS: BP 126/68
[2018-08-20] MEDS: VALPROATE 750 MG in IV NS 0.9% 100 ML IV SCH (05:12)
[2018-08-20] MEDS: LEVETIRACETAM SOL (5 ML) 100 MG/ML UDC GT SCH ×3 (05:12→20:37)
--- NOTE | 2018-08-20 06:47 | NUR ---
RN CLOSING NOTES: REMAINS OBTUNDED, ON COOL AEROSOL. REMAINS ON GTUBE FEEDING JEVITY 1.2 AT 65ML/HR. BLE AND BUE ELEVATED. ORAL CARE PROVIDED. VS REMAINS STABLE, NEEDS ATTENDED. AWAITING FOR CLEARANCE BY NEURO. SAFETY PRECAUTIONS FOR FALL REMAINS ENGAGED, CALL LIGHT IN REACH, WILL ENDORSE TO DAY RN FOR DONTE.
[2018-08-20 07:16] LABS: CALCIUM, SERUM 9.1 mg/dL (8.5-10.1); CREATININE 0.3 mg/dL (0.6-1.3); PHOSPHORUS 3.6 mg/dL (2.5-4.9); POTASSIUM 3.8 mmol/L (3.5-5.1)
[2018-08-20 07:17] LABS: BASOPHILS % (AUTO) 0.3 % (0.0-2.0); EOSINOPHILS % (AUTO) 0.9 % (0.0-6.0); HEMATOCRIT 40 % (33-45); HEMOGLOBIN 13.6 g/dL (11.5-14.8); LYMPHOCYTES # (AUTO) 1.6 /CMM (0.8-4.8); MEAN CORPUSCULAR HGB CONC 34 g/dl (31.0-36.0); MEAN CORPUSCULAR VOLUME 97 fL (82-100); MONOCYTES # (AUTO) 0.8 /CMM (0.1-1.30); MONOCYTES % (AUTO) 8.4 % (2.0-12.0); NEUTROPHILS # (AUTO) 6.6 /CMM (1.8-8.9); NEUTROPHILS % (AUTO) 72.4 % (43.0-81.0); PLATELET COUNT (AUTO) 306 /CMM (150-450); WHITE BLOOD COUNT (AUTO) 9.1 K/uL (4.3-11.0)
[2018-08-20 08:00] VITALS: BP 112/54
--- NOTE | 2018-08-20 08:00 | NUR ---
RN AM INITIAL NOTES: RECEIVED PT IN BED, OBTUNDED, ON COOL AEROSOL FIO2 28%, TRACHE SHILEY NUMBER 6. PT CURRENTLY TUBE FEEDING JEVITY ON HOLD.NOTED TO HAVE 5 ML RESIDUAL. IV ACCESS PATENT AND FLUSHING WELL, ON HL. ABDOMEN SOFT TO TOUCH WITH ACTIVE BOWEL SOUND HEARD UPON AUSCULTATION. BLE OFFLOADED, ORAL CARE PROVIDED. AMELIA LING NEURO SPOKE TO PT'S BROTHER AT BEDSIDE.CONTRACTURES NOTED ON UPPER EXTREMITY. HOB KEPT ELEVATED 30 DEGREES. SAFETY PRECAUTIONS FOR FALL INITIATED, CALL LIGHT IN REACH, WILL CONTINUE MONITORING PT.
[2018-08-20] MEDS: THIAMINE HCL 100 MG TABLET GT SCH (08:57)
[2018-08-20] MEDS: ASPIRIN 81 MG TAB.CHEW PO SCH (08:57)
[2018-08-20] MEDS: PANTOPRAZOLE 40 MG VIAL IV SCH (08:57)
[2018-08-20] MEDS: LEVOTHYROXINE SODIUM 50 MCG TABLET GT SCH (08:57)
[2018-08-20] MEDS: FOLIC ACID 1 MG TABLET GT SCH (08:58)
[2018-08-20] MEDS: BACLOFEN (10 MG) 10 MG TABLET GT SCH ×3 (08:58→17:29)
[2018-08-20] MEDS: ENOXAPARIN SODIUM 40 MG/0.4 ML DISP.SYRIN SQ SCH (08:59)
[2018-08-20] MEDS: CLOTRIMAZOLE 1% 15 GM TUBE TP SCH ×2 (10:22→18:02)
[2018-08-20] MEDS: PROSOURCE / PROSTAT (PYXIS) 30 ML UDC GT SCH ×2 (10:23→17:29)
[2018-08-20 16:00] VITALS: BP 120/76
--- NOTE | 2018-08-20 18:00 | NUR ---
BEEN TRYING TO GET HOLD OF NALDO ALTAMIRANO COMFORT FILLER TO CLARIFY DEPACON IV FOR 2100 IF IT NEEDS TO BE ADMINISTERED.PT'S VALPROIC ACID LEVEL IS HIGH 129.AWAITING TO RETURN CALL.ALSO MENTIONED THAT PT'S FAMILY WANTS TO GET HOLD OF DR JOHNSON TO SPEAK TO PT'S NEURO,DR TANNER.DR TANNER'S PHONE NUMBER HAS BEEN GIVEN TO NALDO ALTAMIRANO COMFORT FILLER.PT'S V/S HAS BEEN STABLE SINCE THE START OF THE SHIFT.NO S/S OF PAIN OR DISTRESS.
--- NOTE | 2018-08-20 18:48 | NUR ---
PT COMFORTABLY LYING IN BED OCCASIONALLY OPENING HER EYES. NO S/S OF SOB OR DISCOMFORT.SUCTIONED THICK YELLOWISH WHITE SECRETIONS.TURNED EVERY TWO HRS.WITH ONGOING GT FEEDING AT 65 ML/HR TOLERATING WELL.WITH 5-10 ML RESIDUALS NOTED DURING THE SHIFT.PT'S BROTHER AT BEDSIDE.CALL LIGHT WITHIN REACH.
--- NOTE | 2018-08-20 19:45 | NUR ---
MS RN OPENING NOTES: RECEIVED PT ON 5LPM VIA COOL AEROSOL AND IS TOLERATING WELL. BROTHER AT BEDSIDE. PT NOTED OBTUNDED. PT HAS TRACH SHILEY #6. PT HAS G TUBE. 5 ML OF RESIDUAL NOTED. PT HAS JEVITY 1.2 FEEDING AT 65ML/HR. PT HAS IV ON L AC #20G AND IS PATENT AND INTACT. CURRENTLY H/L. BED KEPT IN LOW, LOCKED POSITION, AND SIDE RAILS X 2UP. WILL CONTINUE TO MONITOR PT.
[2018-08-20] MEDS: VALPROATE 500 MG in IV NS 0.9% 100 ML IV SCH (20:21)
[2018-08-20 20:29] VITALS: BP 127/68
[2018-08-20] MEDS: ATORVASTATIN 10 MG TABLET PO SCH (21:08)
[2018-08-21] MEDS: IPRATROPIUM NEB FS 0.5 MG/2.5 ML AMPUL.NEB NEB SCH ×4 (02:29→20:01)
[2018-08-21] MEDS: VALPROATE 500 MG in IV NS 0.9% 100 ML IV SCH ×2 (04:20→16:46)
[2018-08-21] MEDS: LEVETIRACETAM SOL (5 ML) 100 MG/ML UDC GT SCH ×3 (04:57→20:43)
--- NOTE | 2018-08-21 06:53 | NUR ---
MS RN CLOSING NOTES: ALL NEEDS WERE ATTENDED AND ANTICIPATED FOR. PT KEPT CLEAN, DRY AND COMFORTABLE. PT REMAINS OBTUNDED. PT REMAINS ON COOL TRACH AEROSOL 5LPM AND IS TOLERATING WELL. PT SUCTIONED PRN. PT TURNED AND REPOSITIONED Q 2HRS. IV REMAINS INTACT. CURRENTLY H/L. PT HAS G TUBE. NO RESIDUAL NOTED. FEEDING AT JEVITY 65ML/HR. BED KEPT IN LOW, LOCKED POSITION, AND SIDE RAILS X 2UP. WILL ENDORSE TO AM NURSE FOR DONTE.
[2018-08-21 07:40] LABS: CALCIUM, SERUM 9.3 mg/dL (8.5-10.1); CREATININE 0.4 mg/dL (0.6-1.3); POTASSIUM 4.3 mmol/L (3.5-5.1)
[2018-08-21 08:00] VITALS: BP 122/94
[2018-08-21] MEDS: THIAMINE HCL 100 MG TABLET GT SCH (08:23)
[2018-08-21] MEDS: BACLOFEN (10 MG) 10 MG TABLET GT SCH ×3 (08:23→16:35)
[2018-08-21] MEDS: LEVOTHYROXINE SODIUM 50 MCG TABLET GT SCH (08:24)
[2018-08-21] MEDS: FOLIC ACID 1 MG TABLET GT SCH (08:24)
[2018-08-21] MEDS: ASPIRIN 81 MG TAB.CHEW PO SCH (08:24)
[2018-08-21] MEDS: PANTOPRAZOLE 40 MG VIAL IV SCH (08:26)
[2018-08-21] MEDS: ENOXAPARIN SODIUM 40 MG/0.4 ML DISP.SYRIN SQ SCH (08:50)
[2018-08-21] MEDS: CLOTRIMAZOLE 1% 15 GM TUBE TP SCH ×2 (09:20→16:37)
[2018-08-21] MEDS: PROSOURCE / PROSTAT (PYXIS) 30 ML UDC GT SCH ×2 (09:23→16:36)
--- NOTE | 2018-08-21 09:34 | NUR ---
RN MS NOTES Received patient on SH 6 DCT, C/A 28% on 5L per minute. No sob or ventilatory distress noted, vital signs stable, IV line started on right forearm with 22G.
--- NOTE | 2018-08-21 12:00 | NUR ---
RN MS NOTES PT IN BED, NO SIGN OF PAIN OR DISTRESS, KEPT CLEAN AND DRY, TURNED AND REPOSITIONED, SKIN TREATMENT DONE ORDERED, PT SEEN BY DR. ALEXA MD SPOKE WITH PT'S MOM, PLAN OF CARE DISCUSSED, VERBALIZED UNDERSTANDING, MD INFORMED OF PT'S LATEST VALPROIC ACID LEVEL, PER MD FOLLOW NEUROLOGIST'S RECOMMENDATIONS.
[2018-08-21] MEDS: CALCIUM CARB 600MG /VIT D 1 EACH TABLET PO SCH (12:35)
[2018-08-21 16:00] VITALS: BP 117/76
--- NOTE | 2018-08-21 18:33 | NUR ---
RN MS NOTES Patient resting, no signs of pain or distress, no episode of seizures noted during the shift, patient remains on cool aerosol 28%, no residuals noted from the G-Tube. PM care provided, repositioned every 2 hours. Saline lock right upper arm, intact, patent and flushing.
[2018-08-21 20:00] VITALS: BP 138/81
--- NOTE | 2018-08-21 20:00 | NUR ---
RN NOTES PATIENT IS OBTUNDED, EYES OPEN, DOES NOT RESPOND TO VERBAL AND TACTILE STIMULATION, COOL AEROSOL AT 5LMP, SHILEY #6, NO RESPIRATORY DISTRESS, BREATHING REGULAR, NO ACCESSORY MUSCLE USE, NOT IN APPARENT PAIN, NO FACIAL GRIMACING, NO RESTLESSNESS, BUE CONTRACTED, PEG TUBE FEEDING INFUSING WELL, 5CC RESIDUAL, RETURNED, NO ABDOMINAL DISTENTION, REDNESS TO BUTTOCKS AND PERINEAL AREA, HEELS PROTECTED WITH BOOT, OFFLOADED, KEPT SAFE, WILL CONTINUE TO MONITOR
[2018-08-21] MEDS: ATORVASTATIN 10 MG TABLET PO SCH (21:57)
[2018-08-22] MEDS: IPRATROPIUM NEB FS 0.5 MG/2.5 ML AMPUL.NEB NEB SCH ×4 (02:00→19:39)
[2018-08-22] MEDS: JEVITY 1.2 CAL 1,000 ML BOTTLE GT SCH (02:03)
[2018-08-22] MEDS: CHLORHEXIDINE GLUCONATE 15 ML UDC MM PRN (04:18)
[2018-08-22] MEDS: LEVETIRACETAM SOL (5 ML) 100 MG/ML UDC GT SCH ×3 (05:12→21:11)
[2018-08-22 05:37] LABS: BASOPHILS % (AUTO) 0.2 % (0.0-2.0); EOSINOPHILS % (AUTO) 1.1 % (0.0-6.0); HEMATOCRIT 39 % (33-45); HEMOGLOBIN 13.5 g/dL (11.5-14.8); LYMPHOCYTES # (AUTO) 1.6 /CMM (0.8-4.8); LYMPHOCYTES % (AUTO) 17.4 % (20.0-44.0); MEAN CORPUSCULAR HGB CONC 34 g/dl (31.0-36.0); MEAN CORPUSCULAR VOLUME 97 fL (82-100); MONOCYTES # (AUTO) 0.7 /CMM (0.1-1.30); MONOCYTES % (AUTO) 7.6 % (2.0-12.0); NEUTROPHILS # (AUTO) 6.7 /CMM (1.8-8.9); NEUTROPHILS % (AUTO) 73.7 % (43.0-81.0); PLATELET COUNT (AUTO) 354 /CMM (150-450); RED BLOOD CELL COUNT(AUTO) 4.07 MIL/uL (4.0-5.2)
[2018-08-22] MEDS: VALPROATE 500 MG in IV NS 0.9% 100 ML IV SCH ×2 (05:47→16:44)
[2018-08-22 05:48] LABS: CALCIUM, SERUM 9.6 mg/dL (8.5-10.1); CREATININE 0.4 mg/dL (0.6-1.3); PHOSPHORUS 3.9 mg/dL (2.5-4.9); POTASSIUM 4.4 mmol/L (3.5-5.1)
--- NOTE | 2018-08-22 06:54 | NUR ---
RN NOTES PM SHIFT PATIENT IS OBTUNDED, NO DISTRESS, NO RESPIRATORY DISTRESS, SPO2 STABLE ON COOL AEROSOL, PEG TUBE FEEDING TOLERATED WELL, BM X1, GOOD PERINEAL CARE PROVIDED, NO FURTHER SKIN BREAKDOWN NOTED, LEFT EAR PROTECTED WITH MEPILEX, VALPROIC ACID LEVEL TAKEN, FOLLOW UP WITH NEURO NEW LEVEL, ALL NEEDS TAKEN, KEPT COMFORTABLE.
--- NOTE | 2018-08-22 07:46 | NUR ---
JUAN MS NOTES Patient shows no respiratory distress or SOB, patient is not showing any signs of pain or discomfort. Patient remains on C/A 28%, vital signs stable. Addendum: 08/22/18 at 0748 by RYAN WALTON RN Patient remains on feeding at 65 cc/hour, trached with shiley 6 dct.
[2018-08-22 08:00] VITALS: BP 145/100
[2018-08-22] MEDS: BACLOFEN (10 MG) 10 MG TABLET GT SCH ×3 (08:07→16:36)
[2018-08-22] MEDS: CALCIUM CARB 600MG /VIT D 1 EACH TABLET PO SCH (08:07)
[2018-08-22] MEDS: PROSOURCE / PROSTAT (PYXIS) 30 ML UDC GT SCH ×2 (08:07→16:36)
[2018-08-22] MEDS: LEVOTHYROXINE SODIUM 50 MCG TABLET GT SCH (08:07)
[2018-08-22] MEDS: FOLIC ACID 1 MG TABLET GT SCH (08:07)
[2018-08-22] MEDS: ASPIRIN 81 MG TAB.CHEW PO SCH (08:07)
[2018-08-22] MEDS: THIAMINE HCL 100 MG TABLET GT SCH (08:07)
[2018-08-22] MEDS: ENOXAPARIN SODIUM 40 MG/0.4 ML DISP.SYRIN SQ SCH (08:20)
[2018-08-22] MEDS: PANTOPRAZOLE 40 MG VIAL IV SCH (08:28)
[2018-08-22] MEDS: CLOTRIMAZOLE 1% 15 GM TUBE TP SCH ×2 (08:35→16:37)
--- NOTE | 2018-08-22 14:30 | NUR ---
RN MS NOTES PT IN BED, NO SIGN OF PAIN OR DISTRESS, TOLERATING GT FEEDING, NO RESIDUALS NOTED, TURNED AND REPOSITIONED Q2 HOURS, SEEN BY DR. LIU, PLAN OF CARE DISCUSSED WITH PT'S MOM, KEPT PT CLEAN AND COMFORTABLE.
[2018-08-22 16:00] VITALS: BP 124/82
--- NOTE | 2018-08-22 18:28 | NUR ---
RN CLOSING MS NOTES Patient remains in bed, patient is on cool aerosol 28% with no sob or ventilatory distress noted. Patient tolerating feeding, no residuals noted. Patient is regularly turned and cleaned.
--- NOTE | 2018-08-22 20:00 | NUR ---
RN NOTES RECEIVED PATIENT IN BED, ALERT AND AWAKE, OPENS EYES, NO INTERACTION, COOL AEROSOL AT 5LPM, SPO2 98%, NOT IN APPARENT PAIN, NO FACIAL GRIMACING, TF INFUSING WELL, NO RESIDUAL, FLUSHED, REPOSITIONED FOR COMFORT
[2018-08-22 21:06] VITALS: BP 133/81
[2018-08-22] MEDS: ATORVASTATIN 10 MG TABLET PO SCH (21:11)
[2018-08-22 22:00] VITALS: BP 133/81
[2018-08-23] MEDS: IPRATROPIUM NEB FS 0.5 MG/2.5 ML AMPUL.NEB NEB SCH ×3 (01:27→12:48)
[2018-08-23] MEDS: JEVITY 1.2 CAL 1,000 ML BOTTLE GT SCH (03:51)
[2018-08-23] MEDS: CHLORHEXIDINE GLUCONATE 15 ML UDC MM PRN (03:52)
[2018-08-23] MEDS: LEVETIRACETAM SOL (5 ML) 100 MG/ML UDC GT SCH ×2 (04:27→13:32)
[2018-08-23] MEDS: VALPROATE 500 MG in IV NS 0.9% 100 ML IV SCH ×2 (06:26→16:45)
--- NOTE | 2018-08-23 06:34 | NUR ---
RN NOTES PM SHIFT PATIENT IS OBTUNDED, OPENS EYES, NO REACTION, NO RESPIRATORY DISTRESS, COOL AEROSOL AT 5 LPM, NO SEIZURE DURING SHIFT, ON KEPPRA AND VALPROIC ACID. BUTTOCKS/SACRUM AREA REDNESS RESOLVING, APPLIED LOTRIMIN, ZGUARD, GOOD PERINEAL CARE, BM X1, TURNING AND REPOSITIONING, HEELS OFFLOADED, SUCTIONED PRN, TOLERATING TF, NO RESIDUAL, VALPROIC ACID LEVEL IN AM, PER POC, CONTINUE VALPROIC ACID, KEPPRA, ATIVAN PRN FOR SEIZURE, MAY DC WHEN CLEARED BY NEURO.
[2018-08-23 08:00] VITALS: BP 144/94
--- NOTE | 2018-08-23 08:00 | NUR ---
RN NOTES RECEIVED PATIENT IN THE BED TRACHEA/VENT DEPENDENT. PATIENT PARAPLEGIC , UPPER AND LOWER EXTREMITIES CONTRACTED. PATIENT TOTAL CARE. PATIENT HAS IV ACCESS ON RIGHT FA INTACT. ALSO HAS G-TUBE FEEDING INFUSING JAVITY 1.2 65 ML/HE RESIDUAL, AND PLACEMENT CHECKED, KEEP HOB ELEVATED FOR ASPIRATION PRECAUTION. SCHEDULED MEDICATION ADMINISTERED VIA G-TUBE. ASSIST TURN AND REPOSTION Q 2 HR. CALL LIGHT WITHIN TO RECH, SAFETY PRECAUTION MAINTAINED ALL THE TIME.
[2018-08-23] MEDS: CALCIUM CARB 600MG /VIT D 1 EACH TABLET PO SCH (09:58)
[2018-08-23] MEDS: PANTOPRAZOLE 40 MG VIAL IV SCH (09:59)
[2018-08-23] MEDS: BACLOFEN (10 MG) 10 MG TABLET GT SCH ×3 (09:59→16:45)
[2018-08-23] MEDS: ASPIRIN 81 MG TAB.CHEW PO SCH (09:59)
[2018-08-23] MEDS: LEVOTHYROXINE SODIUM 50 MCG TABLET GT SCH (09:59)
[2018-08-23] MEDS: THIAMINE HCL 100 MG TABLET GT SCH (09:59)
[2018-08-23] MEDS: FOLIC ACID 1 MG TABLET GT SCH (09:59)
--- NOTE | 2018-08-23 10:00 | NUR ---
rn notes patient stable, assist turn and reposition q 2 hr, no acute distress, mother next to the bed, safety precaution maintained all the time.
[2018-08-23] MEDS: ENOXAPARIN SODIUM 40 MG/0.4 ML DISP.SYRIN SQ SCH (10:02)
[2018-08-23] MEDS: PROSOURCE / PROSTAT (PYXIS) 30 ML UDC GT SCH ×2 (10:03→16:47)
[2018-08-23] MEDS: CLOTRIMAZOLE 1% 15 GM TUBE TP SCH ×2 (10:04→16:47)
--- NOTE | 2018-08-23 15:29 | NUR ---
RN notes Patient getting EEG at this time.
[2018-08-23 16:00] VITALS: BP 130/80
--- NOTE | 2018-08-23 17:00 | NUR ---
rn notes residual and placement checked, scheduled medication administered, v/s stable. assist turn and reposition q 2 hr. continued monitoring.
--- NOTE | 2018-08-23 18:30 | NUR ---
rn notes patient going to d/c [facility] facility. med reconciliation and discharge order reviewed and explained to. called and gave report Lory dangelo. food and nutrition teacher verbalized understanding. belonging with the patient. patient stable no acute respiratory distress. 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 Family next to the bed. g-tube intact. endorsed oncoming nurse for plan of care.
--- NOTE | 2018-08-23 19:45 | NUR ---
MS/RN NOTES PT DISCHARGED VIA GURNEY WITH EMT'S BACK TO [facility] IN STABLE CONDITION. DISCHARGE PAPERWORK AND BELONGINGS SENT WITH FAMILY MEMBER. DAY SHIFT RN SPOKE TO DR. DIMITRI TANNER (PT'S NEUROLOGIST) [phone]. OKAY TO TRANSFER PT, AWARE THAT FACILITY DOES NOT WANT TO ACCEPT PT DUE TO PULSE OF 116. PER MD, SHE KNOWS PT MORE THAN 3 MONTHS, PT IS OKAY TO BE DISCHARGED, AND WILL CALL FACILITY TO ACCEPT PT. Addendum: 08/23/18 at 1952 by BEATRIZ PROCTOR RN DAY SHIFT RN REMOVED IV AND WRIST BAND
== END 2018-08-23 19:40 | DRG 53 ==
LOC: ER 14:13 → TELE 18:27 → MED 08-14 08:56
PROVIDERS: ADMIT Registered Nurse; ATTEND Hospitalist
DX: G40.909 Epilepsy, unspecified, not intractable, without status epilepticus (principal); G93.1 Anoxic brain damage, not elsewhere classified; J96.11 Chronic respiratory failure with hypoxia; Z93.0 Tracheostomy status; E87.6 Hypokalemia; Z93.1 Gastrostomy status; M24.574 Contracture, right foot; M24.575 Contracture, left foot; R79.89 Other specified abnormal findings of blood chemistry; R47.02 Dysphasia; Z91.19 Patient's noncompliance with other medical treatment and regimen; M24.542 Contracture, left hand; M24.541 Contracture, right hand
CPT/HCPCS: 31720; 36415; 70450-TC; 71045-TC; 80048-TC; 80061-TC; 80076-TC; 80164-TC; 80177; 80202-TC; 81000-TC; 83605-TC; 83735-TC; 84100-TC; 84443-TC; 84703-TC; 85025-TC; 87040-TC; 87081-TC; 93307-TC; 94640-TC; 94799-TC; 95819-TC; A4623; C9113; G0378; J1650; J1953; J2060; J2543; J3370; J3490; J7030; J7050; J7060